=== PATIENT | female | born 1995 | race Caucasian/White ===

== ENCOUNTER 2018-07-20 19:44 | Emergency (ER) | payer SELFPAY ==
[~2018-07-20] VITALS: Ht 167.6 cm; Wt 124.5 kg
[~2018-07-20 19:44] MED LIST: NO HOME MEDICATIONS
[2018-07-20 20:08] VITALS: BP 136/42; TEMP 98.8
[2018-07-20] MEDS ORDERED: ZITHROMAX Z PA250 MG PO (21:35)
[2018-07-20 21:50] VITALS: PULSE 63
== END 2018-07-20 21:53 | disposition home or self-care (01) ==
LOC: COL.ER 19:44
DX: J06.9 Acute upper respiratory infection, unspecified (principal)

== ENCOUNTER 2018-08-20 18:51 | Emergency (ER) | payer SELFPAY ==
[~2018-08-20] VITALS: Ht 167.6 cm; Wt 133.6 kg
[~2018-08-20 18:51] MED LIST changes: +ZITHROMAX Z PA250 MG PO
[2018-08-20 19:28] LABS: BASO % 0.2 % (0.0-2.0); EOS # 0.1 (0.0-0.7); EOS % 0.8 % (0-4.0); GRAN # 5.6 (1.4-6.5); GRAN % 64.6 % (42.2-75.2); HEMOGLOBIN 12.1 g/dl (12.5-16.0); LYMPH # 2.4 (1.2-3.4); LYMPH % 27.9 % (20.0-51.0); MEAN CELL VOLUME 82 fl (80.0-100.0); MEAN CORPUSCULAR HEMOGLOBIN 28 pg (27.0-31.0); MEAN CORPUSCULAR HGB CONC 33 g/dl (33.0-37.0); MEAN PLATELET VOLUME 9.6 fl (7.4-10.4); MONO # 0.5 (0.1-0.6); MONO % 5.7 % (1.7-9.3); PLATELET COUNT 227 K/mm3 (130-400); REDCELL DISTRIBUTION WIDTH-CV 12.9 % (11.5-14.5)
[2018-08-20 19:38] LABS: BILIRUBIN,TOTAL 0.4 mg/dL (0.0-1.0); CALCIUM 8.9 mg/dL (8.4-10.2); CREATININE, serum 0.47 mg/dL (0.52-1.25); HEMATOCRIT 36.2 % (37.0-47.0); POTASSIUM 4.8 mmol/L (3.4-5.0); TOTAL PROTEIN 7.4 gm/dL (6.4-8.2)
[2018-08-20 19:53] LABS: COLLECTION METHOD CLEAN CATCH
[2018-08-20 20:02] LABS: MUCOUS Present /lpf; PH 6 (5-8); URINE APPEARANCE Hazy; URINE BACTERIA None Seen /hpf; URINE BILIRUBIN Negative (NEGATIVE); URINE BLOOD Negative (NEGATIVE); URINE COLOR Yellow; URINE GLUCOSE Negative (NEGATIVE); URINE KETONE Negative (NEGATIVE); URINE LEUKOCYTE ESTERASE Negative (NEGATIVE); URINE NITRATE Negative (NEGATIVE); URINE PROTEIN(semi-quant) Negative (NEGATIVE); URINE RBC 0-2 /hpf; URINE UROBILINOGEN >=4.0 mg/dL (NEGATIVE)
[2018-08-20 20:23] VITALS: BP 119/79; PULSE 84; TEMP 97.9
== END 2018-08-20 20:24 | disposition home or self-care (01) ==
LOC: COL.ER 18:51
PROVIDERS: Emergency Medicine
DX: O21.9 Vomiting of pregnancy, unspecified (principal); O99.331 Smoking (tobacco) complicating pregnancy, first trimester; O26.891 Other specified pregnancy related conditions, first trimester; R10.9 Unspecified abdominal pain; F17.210 Nicotine dependence, cigarettes, uncomplicated; Z98.890 Other specified postprocedural states; Z3A.00 Weeks of gestation of pregnancy not specified
CPT/HCPCS: J7030

== ENCOUNTER 2018-09-17 15:04 | Emergency (ER) | payer MEDICAID ==
[~2018-09-17] VITALS: Ht 167.6 cm; Wt 136.4 kg
[2018-09-17 15:27] VITALS: TEMP 98.1
[2018-09-17 15:55] LABS: COLLECTION METHOD CLEAN CATCH
[2018-09-17 16:12] LABS: MUCOUS Present /lpf; PH 5 (5-8); SQUAMOUS EPITHELIAL 20-50 /hpf; URINE APPEARANCE Cloudy; URINE BACTERIA None Seen /hpf; URINE BILIRUBIN Negative (NEGATIVE); URINE BLOOD 3+ (NEGATIVE); URINE CALCIUM OXALATE CRYSTAL Present /hpf; URINE COLOR Amber; URINE GLUCOSE Negative (NEGATIVE); URINE KETONE Negative (NEGATIVE); URINE LEUKOCYTE ESTERASE 2+ (NEGATIVE); URINE NITRATE Negative (NEGATIVE); URINE PROTEIN(semi-quant) 2+ (NEGATIVE); URINE RBC >50 /hpf
[2018-09-17] MEDS ORDERED: CEPHALEXIN500 M1 PO (16:26)
[2018-09-17] MEDS ORDERED: PYRIDIUM200 M1 PO (16:26)
[2018-09-17 17:30] VITALS: BP 127/57; PULSE 70
== END 2018-09-17 17:30 | disposition home or self-care (01) ==
LOC: COL.ER 15:04
PROVIDERS: Physician Assistant
DX: N39.0 Urinary tract infection, site not specified (principal)
CPT/HCPCS: J2405

== ENCOUNTER 2018-09-21 14:46 | Emergency (ER) | payer MEDICAID ==
[~2018-09-21] VITALS: Ht 167.6 cm; Wt 136.4 kg
[~2018-09-21 14:46] MED LIST changes: +CEPHALEXIN500 M1 PO; +PYRIDIUM200 M1 PO
[2018-09-21 14:59] VITALS: BP 144/79; PULSE 89; TEMP 98.2
== END 2018-09-21 15:50 | disposition home or self-care (01) ==
LOC: COL.ER 14:46
DX: O9A.211 Injury, poisoning and certain other consequences of external causes complicating pregnancy, first trimester (principal); S30.810A Abrasion of lower back and pelvis, initial encounter; Z98.890 Other specified postprocedural states; Z87.891 Personal history of nicotine dependence; Z3A.09 9 weeks gestation of pregnancy; W22.8XXA Striking against or struck by other objects, initial encounter

== ENCOUNTER 2018-11-11 21:45 | Emergency (ER) | payer MEDICAID ==
[~2018-11-11] VITALS: Ht 167.6 cm; Wt 140.5 kg
[2018-11-11 21:51] VITALS: TEMP 98.1
[2018-11-11] MEDS ORDERED: CAPACET 325 MG-1 CAP PO (21:52)
[2018-11-11 23:00] LABS: COLLECTION METHOD CLEAN CATCH
[2018-11-11 23:20] LABS: MUCOUS Present /lpf; PH 5 (5-8); URINE APPEARANCE Hazy; URINE BACTERIA None Seen /hpf; URINE BILIRUBIN Negative (NEGATIVE); URINE BLOOD 1+ (NEGATIVE); URINE CALCIUM OXALATE CRYSTAL Present /hpf; URINE COLOR Yellow; URINE GLUCOSE Negative (NEGATIVE); URINE KETONE Negative (NEGATIVE); URINE LEUKOCYTE ESTERASE Negative (NEGATIVE); URINE NITRATE Negative (NEGATIVE); URINE PROTEIN(semi-quant) Negative (NEGATIVE); URINE UROBILINOGEN Negative (NEGATIVE)
[2018-11-12 00:30] VITALS: BP 116/80
[2018-11-12 01:35] VITALS: PULSE 86
== END 2018-11-12 01:35 | disposition home or self-care (01) ==
LOC: COL.ER 21:45
PROVIDERS: Nurse Practitioner
DX: R51 Headache (principal); Z87.891 Personal history of nicotine dependence
CPT/HCPCS: J1200; J2550

== ENCOUNTER 2019-02-15 13:22 | Outpatient (CLI) | payer MEDICAID ==
[~2019-02-15] VITALS: Ht 170.2 cm; Wt 136.5 kg
[~2019-02-15 13:22] MED LIST changes: +CAPACET 325 MG-1 CAP PO
--- NOTE | 2019-02-15 13:25 | NUR ---
1325-G2L1 PATIENT OF DR. CORBIN AMBULATORY TO LR 5 WITH COMPLAINT OF VAGINAL BLEEDING WHILE USING THE BATHROOM TODAY AT 1230. REPORTS GOOD MOVEMENT, DENIES LOF. DENIES RECENT INTERCOURSE. VOIDS, CLEAN CATCH UA COLLECTED. ASSISTED INTO GOWN AND ONTO EFM. REACTIVE FHR 140BPM BASELINE. VSS. ASSESSMENT COMPLETED. SVE C/TH/HIGH. GLOVE WITH MINIMAL PINK TINGED WHITE DISHCARGE, NO FLUID NOTED. 1400-UPDATED MD ON PATIENT, ORDERS TO SEND URINALYSIS 1445-UA RESULTS REVIEWED WITH DR. SÁNCHEZ. ORDERS TO DISCHARGE PATIENT HOME. OFF EFM, UPDATED PATIENT. 1500-REVIEWED DISCHARGE INSTRUCTIONS AMBULATORY OFF UNIT.
[2019-02-15 13:27] VITALS: BP 140/61; PULSE 93; TEMP 98.7
[2019-02-15] MEDS ORDERED: CAPACET 325 MG-1 CAP (13:57)
[2019-02-15 14:00] VITALS: BP 131/62; PULSE 88; TEMP 98.7
[2019-02-15 14:13] LABS: COLLECTION METHOD CLEAN CATCH
[2019-02-15 14:29] LABS: MUCOUS Present /lpf; PH 5 (5-8); URINE APPEARANCE Cloudy; URINE BACTERIA Rare /hpf; URINE BILIRUBIN Negative (NEGATIVE); URINE BLOOD 3+ (NEGATIVE); URINE CALCIUM OXALATE CRYSTAL Present /hpf; URINE COLOR Yellow; URINE GLUCOSE Negative (NEGATIVE); URINE KETONE Negative (NEGATIVE); URINE LEUKOCYTE ESTERASE 1+ (NEGATIVE); URINE NITRATE Negative (NEGATIVE); URINE PROTEIN(semi-quant) Negative (NEGATIVE); URINE RBC 20-50 /hpf
== END 2019-02-15 15:00 | disposition home or self-care (01) ==
LOC: LDRO 13:22
PROVIDERS: Obstetrics & Gynecology
DX: O46.93 Antepartum hemorrhage, unspecified, third trimester (principal); Z3A.31 31 weeks gestation of pregnancy

== ENCOUNTER 2019-02-27 18:23 | Emergency (ER) | payer MEDICAID ==
[~2019-02-27] VITALS: Ht 170.2 cm; Wt 136.8 kg
[~2019-02-27 18:23] MED LIST changes: +CAPACET 325 MG-1 CAP
[2019-02-27 18:27] VITALS: TEMP 97.9
--- NOTE | 2019-02-27 19:46 | NUR ---
G2L1. 33-3. Pt in ER for left eye itchiness, drainage and redness. EFM and TOCO explained and applied. Pt denies contractions, LOF or vaginal bleeding at this time. Pt states she was in labor in delivery a couple weeks ago for vaginal spotting but no longer in bleeding at this time, aware of bleeding. Pt reports good movement. No contractions noted per TOCO. RN remains at bedside holding EFM. Report given to ER nurse taking care of pt.
[2019-02-27 21:00] VITALS: BP 148/86; PULSE 81
== END 2019-02-27 21:03 | disposition home or self-care (01) ==
LOC: COL.ER 18:23
DX: H10.9 Unspecified conjunctivitis (principal); Z87.891 Personal history of nicotine dependence

== ENCOUNTER 2019-03-06 12:10 | Outpatient (CLI) | payer MEDICAID ==
[~2019-03-06] VITALS: Ht 170.2 cm; Wt 139.7 kg
[2019-03-06 12:32] VITALS: BP 147/67; PULSE 88; TEMP 98.5
[2019-03-06 12:47] LABS: HEMOGLOBIN 10.7 g/dl (12.5-16.0); MEAN CELL VOLUME 85 fl (80.0-100.0); MEAN CORPUSCULAR HEMOGLOBIN 28 pg (27.0-31.0); MEAN CORPUSCULAR HGB CONC 33 g/dl (33.0-37.0); MEAN PLATELET VOLUME 10.5 fl (7.4-10.4); PLATELET COUNT 176 K/mm3 (130-400); RED BLOOD COUNT 3.84 M/mm3 (4.10-5.30)
[2019-03-06 12:48] LABS: HEMATOCRIT 32.8 % (37.0-47.0)
[2019-03-06 12:54] LABS: ALANINE AMINOTRANSFERASE < 6 U/L (9-52); ALBUMIN 3.5 gm/dL (3.5-5.0); ALKALINE PHOSPHATASE 99 U/L (50-136); ANION GAP 12 mmol/L (7-16); AST,SGOT 17 U/L (15-37); BILIRUBIN,TOTAL 0.3 mg/dL (0.0-1.0); BLOOD UREA NITROGEN 5 mg/dL (7-17); CALCIUM 8.9 mg/dL (8.4-10.2); CARBON DIOXIDE 18 mmol/L (22-30); CHLORIDE 111 mmol/L (98-107); CREATININE, serum 0.34 (0.52-1.25); GLUCOSE 82 mg/dL (74-106); POTASSIUM 4.6 mmol/L (3.4-5.0); SODIUM 140 mmol/L (137-145); TOTAL PROTEIN 6.7 gm/dL (6.4-8.2)
[2019-03-06 13:36] LABS: ANISOCYTOSIS 1+; EOSINOPHIL 2 % (0-4); HYPOCHROMIA 1+; LYMPHOCYTE 26 % (20.0-51.0); MYELOCYTE 1 % (0-0); NEUTROPHILS 65 % (42.0-75.2); PLATELET ESTIMATE NORMAL (NORMAL)
== END 2019-03-06 13:15 | disposition home or self-care (01) ==
LOC: LDRO 12:10 → LDR 12:10 → LDRO 13:15
PROVIDERS: Obstetrics & Gynecology
DX: O13.3 Gestational [pregnancy-induced] hypertension without significant proteinuria, third trimester (principal); Z3A.34 34 weeks gestation of pregnancy
CPT/HCPCS: OP

== ENCOUNTER 2019-03-22 17:08 | Outpatient (CLI) | payer MEDICAID ==
[~2019-03-22] VITALS: Ht 167.6 cm; Wt 136.4 kg
--- NOTE | 2019-03-22 17:15 | NUR ---
Pt here from ER with c/o contractions since 1400. Pt states "my back hurts and is tingling". Pt to [facility], explained. SVE: closed/thick/high. Pt states baby is active, denies any leaking of fluid or vaginal bleeding. Assessment complete. FHR reactive. Pt states they have been monitoring her BP but has not been on bedrest or medication. Pt will be a repeat c/section. 36.5 weeks gestation. Will notify dr gilmore for orders.
[2019-03-22 17:22] VITALS: BP 151/79; PULSE 86; TEMP 97.6
[2019-03-22] MEDS ORDERED: ZOLOFT 50MG50 MG PO (17:26)
[2019-03-22] MEDS ORDERED: PRENATAL PO (17:26)
== END 2019-03-22 18:00 | disposition home or self-care (01) ==
LOC: LDRO 17:08 → LDR 17:40 → EDSTATUS 17:45 → LDRO 18:00
DX: O62.9 Abnormality of forces of labor, unspecified (principal); Z3A.36 36 weeks gestation of pregnancy
CPT/HCPCS: OP

== ENCOUNTER 2019-03-23 21:40 | Outpatient (CLI) | payer MEDICAID ==
[~2019-03-23] VITALS: Ht 167.6 cm; Wt 136.4 kg
--- NOTE | 2019-03-23 21:50 | NUR ---
2149- PT PRESENTS TO LDR COPLAINING OF PELVIC PAIN, AMBULATORY TO ROOM LR3, CHANGED INTO GOWN. 2158- EFM X2 APPLIED. PT DENIES CONTRACTIONS, STATES SHE IS JUST HAVING PELVIC PAIN AND SOME INTERMITTENT CRAMPING. INCREASED VAGINAL DISCHARGE, AND STATES SHE IS FEELING THE BABY MOVE NORMALLY. NO VAGINAL BLEEDING. VS STABLE. PLAN OF CARE FOR LABOR CHECK DISCUSSED AND QUESTIONS ANSWERED. 2209- SVE BY THIS NURSE 0/0/-2 WITH NO FLUID POOLING OR ABNORMAL DISCHARGE ON GLOVE. NURSING ADMISSION HISTORY AND ASSESSMENT COMPLETE. 2219- DR PENA REVIEWS STRIP AND BLOOD PRESSURE, STATES 1 HOUR LABOR CHECK AND MAY BE DISMISSED IF CERVIX UNCHANGED.
[2019-03-23 22:30] VITALS: BP 135/71; PULSE 92; TEMP 98.8
--- NOTE | 2019-03-23 22:45 | NUR ---
2245- DR PENA REVIEWS STRIP AND CURRENT BLOOD PRESSURE, NO NEW ORDERS.
[2019-03-23 23:00] VITALS: BP 126/58
--- NOTE | 2019-03-23 23:15 | NUR ---
2315- SVE BY THIS NURSE UNCHANGED. PT TOLERATING PO FLUIDS WITH MINIMAL NAUSEA. PT OFF MONITOR FOR DISMISSAL. 2329- DISMISSAL INSTRUCTIONS GIVEN, PT VERBALIZES UNDERSTANING. HYDRATION AND BRAT DIET DISCUSSED. PT DISMISSED AMBULATORY ACCOMPANIED BY FRIENDS.
== END 2019-03-23 23:30 | disposition home or self-care (01) ==
LOC: LDR 21:40 → LDRO 21:40
DX: O99.89 Other specified diseases and conditions complicating pregnancy, childbirth and the puerperium (principal); R10.2 Pelvic and perineal pain; Z3A.36 36 weeks gestation of pregnancy
CPT/HCPCS: OP

== ENCOUNTER → 2019-03-23 | Emergency (ER) | payer MEDICAID ==
[~2019-03-23] MED LIST changes: +PRENATAL PO; +ZOLOFT 50MG50 MG PO
== END ==
LOC: COL.ER 21:37
DX: Z72.89 Other problems related to lifestyle (principal)

== ENCOUNTER 2019-04-08 14:04 | Outpatient (CLI) | payer MEDICAID ==
[~2019-04-08] VITALS: Ht 167.6 cm; Wt 138.8 kg
--- NOTE | 2019-04-08 14:05 | NUR ---
PATIENT HERE IN LR 2. PATIENT DENIES LEAKING OF FLUID, BLEEDING. PATIENT STATES SHE IS NOT HAVING CONTRACTIONS, BUT IS CRAMPY. VITALS OBTAINED, ASSESMENT COMPLETE
[2019-04-08 14:18] VITALS: BP 142/72; PULSE 69; TEMP 98.2
[2019-04-08 14:30] VITALS: BP 142/72; PULSE 74; TEMP 98.2
[2019-04-08 15:00] VITALS: BP 143/76; PULSE 60
[2019-04-08 15:18] LABS: COLLECTION METHOD CLEAN CATCH
[2019-04-08 15:23] LABS: ALBUMIN 3.8 gm/dL (3.5-5.0); BILIRUBIN,TOTAL 0.3 mg/dL (0.0-1.0); CALCIUM 8.9 mg/dL (8.4-10.2); CREATININE, serum 0.42 (0.52-1.25); POTASSIUM 4.8 mmol/L (3.4-5.0); TOTAL PROTEIN 7.2 gm/dL (6.4-8.2)
[2019-04-08 15:25] LABS: BASO % 0.1 % (0.0-2.0); EOS % 0.2 % (0-4.0); GRAN # 6.1 (1.4-6.5); GRAN % 73.8 % (42.2-75.2); HEMOGLOBIN 12.2 g/dl (12.5-16.0); LYMPH # 1.6 (1.2-3.4); LYMPH % 19.2 % (20.0-51.0); MEAN CELL VOLUME 85 fl (80.0-100.0); MEAN CORPUSCULAR HEMOGLOBIN 28 pg (27.0-31.0); MEAN CORPUSCULAR HGB CONC 33 g/dl (33.0-37.0); MEAN PLATELET VOLUME 10.9 fl (7.4-10.4); MONO # 0.5 (0.1-0.6); MONO % 5.9 % (1.7-9.3); PLATELET COUNT 197 K/mm3 (130-400); REDCELL DISTRIBUTION WIDTH-CV 14.5 % (11.5-14.5)
[2019-04-08 15:26] LABS: HEMATOCRIT 36.6 % (37.0-47.0)
[2019-04-08 15:30] VITALS: BP 142/68; PULSE 76
[2019-04-08 15:46] LABS: MUCOUS Present /lpf; PH 6 (5-8); URINE APPEARANCE Clear; URINE BACTERIA None Seen /hpf; URINE BILIRUBIN Negative (NEGATIVE); URINE BLOOD Negative (NEGATIVE); URINE COLOR Yellow; URINE GLUCOSE Negative (NEGATIVE); URINE KETONE Negative (NEGATIVE); URINE LEUKOCYTE ESTERASE Negative (NEGATIVE); URINE NITRATE Negative (NEGATIVE); URINE PROTEIN(semi-quant) Negative (NEGATIVE); URINE RBC 0-2 /hpf; URINE UROBILINOGEN Negative (NEGATIVE); URINE WBC 0-2 /hpf
[2019-04-08 15:50] VITALS: BP 141/81; PULSE 64; TEMP 98
== END 2019-04-08 15:58 | disposition home or self-care (01) ==
LOC: LDRO 14:04
PROVIDERS: Obstetrics & Gynecology
DX: O26.893 Other specified pregnancy related conditions, third trimester (principal); R25.2 Cramp and spasm; Z3A.39 39 weeks gestation of pregnancy

== ENCOUNTER 2019-04-11 04:52 | Inpatient (IN) | payer MEDICAID ==
[2019-04-11] VITALS (19 sets, daily range): BP systolic 92–134; BP diastolic 52–76; PULSE 54–98; TEMP 98.3–98.8
[~2019-04-11] VITALS: Ht 167.6 cm; Wt 136.0 kg
--- NOTE | 2019-04-11 05:00 | NUR ---
Pt ambulatory to 210 for scheduled with spouse. Clean gown on. EFM and TOCO explained and applied. Denies denies contractions, LOF or vaginal bleeding. Reports good movement. Plan of care explained. 0515: IV started and labs obtained via IV site. LR bolus infusing without difficulties. Consents completed.
[2019-04-11 06:25] LABS: BASO % 0.1 % (0.0-2.0); EOS # 0.1 (0.0-0.7); EOS % 0.6 % (0-4.0); GRAN # 5.8 (1.4-6.5); GRAN % 65.9 % (42.2-75.2); HEMOGLOBIN 11.8 g/dl (12.5-16.0); LYMPH # 2.3 (1.2-3.4); LYMPH % 26.3 % (20.0-51.0); MEAN CELL VOLUME 86 fl (80.0-100.0); MEAN CORPUSCULAR HEMOGLOBIN 28 pg (27.0-31.0); MEAN CORPUSCULAR HGB CONC 33 g/dl (33.0-37.0); MEAN PLATELET VOLUME 11.5 fl (7.4-10.4); MONO # 0.6 (0.1-0.6); MONO % 6.4 % (1.7-9.3); PLATELET COUNT 207 K/mm3 (130-400); RED BLOOD COUNT 4.17 M/mm3 (4.10-5.30); REDCELL DISTRIBUTION WIDTH-CV 14.6 % (11.5-14.5)
[2019-04-11 06:26] LABS: HEMATOCRIT 35.8 % (37.0-47.0)
[2019-04-12 04:45] VITALS: BP 131/54; PULSE 74; TEMP 97.8
[2019-04-12 08:30] VITALS: BP 143/71; PULSE 77; TEMP 97.8
--- NOTE | 2019-04-12 08:30 | NUR ---
Rests in bed, alert. Holds baby. Motrin 600 mg one given as ordered.
[2019-04-12 08:40] LABS: HEMOGLOBIN 10.7 g/dl (12.5-16.0)
[2019-04-12 08:41] LABS: HEMATOCRIT 32.5 % (37.0-47.0)
--- NOTE | 2019-04-12 11:00 | NUR ---
1110 Percocet 5/325 mg two given per request and as ordered.
--- NOTE | 2019-04-12 14:29 | NUR ---
Ibuprofen 600 mg one given per request and as ordered.
[2019-04-12 15:30] VITALS: BP 125/57; PULSE 81; TEMP 98.9
--- NOTE | 2019-04-12 15:30 | NUR ---
Rests in bed, alert. Percocet 5/325 mg two given per request and as ordered.
[2019-04-12] MEDS ORDERED: PERCOCET 325 MG1 TA2 PO (18:59)
[2019-04-12] MEDS ORDERED: MOTRIN 800800 MG/TAB PO (18:59)
[2019-04-12 19:45] VITALS: BP 132/52; PULSE 79; TEMP 98.4
[2019-04-13 08:00] VITALS: BP 134/54; PULSE 67; TEMP 98.9
--- NOTE | 2019-04-13 08:00 | NUR ---
Rests in bed, alert. Percocet two 5/325 mg given per request and as ordered.
== END 2019-04-13 11:35 | disposition home or self-care (01) | DRG 788 ==
LOC: OB 04:52
PROVIDERS: ADMIT Obstetrics & Gynecology
PROC: 10D00Z1 Extraction of Products of Conception, Low, Open Approach (ICD-10-PCS; principal; 2019-04-11)
DX: O34.211 Maternal care for low transverse scar from previous cesarean delivery (principal); O99.62 Diseases of the digestive system complicating childbirth; K21.9 Gastro-esophageal reflux disease without esophagitis; O99.213 Obesity complicating pregnancy, third trimester; O99.344 Other mental disorders complicating childbirth; F32.9 Major depressive disorder, single episode, unspecified; O35.9XX0 Maternal care for (suspected) fetal abnormality and damage, unspecified, not applicable or unspecified; Z3A.39 39 weeks gestation of pregnancy; Z37.0 Single live birth; Z87.891 Personal history of nicotine dependence
CPT/HCPCS: J0690; J1885; J2370; J2405; J2590; J3010; J7120

== ENCOUNTER 2019-05-20 16:42 | Emergency (ER) | payer MEDICAID ==
[~2019-05-20] VITALS: Ht 167.6 cm; Wt 133.2 kg
[~2019-05-20 16:42] MED LIST changes: +MOTRIN 800800 MG/TAB PO; +PERCOCET 325 MG1 TA2 PO
[2019-05-20 16:55] VITALS: BP 154/67
[2019-05-20] MEDS ORDERED: PREDNISONE20 MG PO (17:17)
[2019-05-20] MEDS ORDERED: ZITHROMAX Z PA250 MG PO (17:17)
[2019-05-20 17:40] VITALS: PULSE 84; TEMP 98.4
== END 2019-05-20 17:40 | disposition home or self-care (01) ==
LOC: COL.ER 16:42
DX: J02.9 Acute pharyngitis, unspecified (principal); F17.210 Nicotine dependence, cigarettes, uncomplicated; F32.9 Major depressive disorder, single episode, unspecified; Z98.890 Other specified postprocedural states

== ENCOUNTER 2019-09-02 09:02 | Emergency (ER) | payer MEDICAID ==
[~2019-09-02] VITALS: Ht 167.6 cm; Wt 136.4 kg
[~2019-09-02 09:02] MED LIST changes: +PREDNISONE20 MG PO
[2019-09-02 09:08] VITALS: BP 157/94; TEMP 98.9
[2019-09-02] MEDS ORDERED: ZOLOFT 100MG100 MG PO (09:20)
[2019-09-02] MEDS ORDERED: ZITHROMAX Z PA250 MG PO (10:01)
[2019-09-02 11:00] VITALS: PULSE 68
== END 2019-09-02 10:57 | disposition home or self-care (01) ==
LOC: COL.ER 09:02
DX: J20.9 Acute bronchitis, unspecified (principal); F17.210 Nicotine dependence, cigarettes, uncomplicated; Z98.890 Other specified postprocedural states

== ENCOUNTER 2019-09-11 17:41 | Emergency (ER) | payer MEDICAID ==
[~2019-09-11] VITALS: Ht 167.6 cm; Wt 131.8 kg
[~2019-09-11 17:41] MED LIST changes: +ZOLOFT 100MG100 MG PO
[2019-09-11 17:43] VITALS: BP 120/69; TEMP 98.2
[2019-09-11] MEDS ORDERED: ZOFRAN ODT4 MG PO (19:27)
[2019-09-11 19:40] VITALS: PULSE 90
== END 2019-09-11 19:39 | disposition home or self-care (01) ==
LOC: COL.ER 17:41
DX: J06.9 Acute upper respiratory infection, unspecified (principal); R11.2 Nausea with vomiting, unspecified; R19.7 Diarrhea, unspecified; F32.9 Major depressive disorder, single episode, unspecified; F17.210 Nicotine dependence, cigarettes, uncomplicated; Z98.890 Other specified postprocedural states

== ENCOUNTER 2019-12-18 17:57 | Emergency (ER) | payer MEDICAID ==
[~2019-12-18] VITALS: Ht 167.6 cm; Wt 147.5 kg
[~2019-12-18 17:57] MED LIST changes: +ZOFRAN ODT4 MG PO
[2019-12-18 18:06] VITALS: BP 131/62; TEMP 98
[2019-12-18 18:28] LABS: COLLECTION METHOD CLEAN CATCH
[2019-12-18 18:34] LABS: MUCOUS Present /lpf; PH 5 (5-8); SQUAMOUS EPITHELIAL 0-2 /hpf; URINE APPEARANCE Clear; URINE BACTERIA Rare /hpf; URINE BILIRUBIN Negative (NEGATIVE); URINE BLOOD 1+ (NEGATIVE); URINE COLOR Yellow; URINE GLUCOSE Negative (NEGATIVE); URINE KETONE Trace (NEGATIVE); URINE LEUKOCYTE ESTERASE Negative (NEGATIVE); URINE NITRATE Negative (NEGATIVE); URINE PROTEIN(semi-quant) Negative (NEGATIVE); URINE RBC 0-2 /hpf; URINE UROBILINOGEN Negative (NEGATIVE)
[2019-12-18 19:22] VITALS: PULSE 71
== END 2019-12-18 19:22 | disposition home or self-care (01) ==
LOC: COL.ER 17:57
PROVIDERS: Family Medicine
DX: G43.909 Migraine, unspecified, not intractable, without status migrainosus (principal); R11.10 Vomiting, unspecified
CPT/HCPCS: J1100; J1200; J1790

== ENCOUNTER 2020-04-14 16:03 | Emergency (ER) | payer MEDICAID ==
[~2020-04-14] VITALS: Ht 167.6 cm; Wt 150.0 kg
[2020-04-14 16:27] LABS: COLLECTION METHOD CLEAN CATCH
[2020-04-14 16:35] LABS: MUCOUS Present /lpf; PH 5 (5-8); URINE APPEARANCE Hazy; URINE BACTERIA Rare /hpf; URINE BILIRUBIN Negative (NEGATIVE); URINE BLOOD 1+ (NEGATIVE); URINE COLOR Yellow; URINE GLUCOSE Negative (NEGATIVE); URINE KETONE Negative (NEGATIVE); URINE LEUKOCYTE ESTERASE 1+ (NEGATIVE); URINE NITRATE Negative (NEGATIVE); URINE PROTEIN(semi-quant) Negative (NEGATIVE); URINE UROBILINOGEN Negative (NEGATIVE)
[2020-04-14 18:58] VITALS: BP 124/78; PULSE 72; TEMP 98.1
== END 2020-04-14 19:07 | disposition home or self-care (01) ==
LOC: COL.ER 16:03
PROVIDERS: Emergency Medicine
DX: N89.8 Other specified noninflammatory disorders of vagina (principal)
CPT/HCPCS: J0696